=== PATIENT | female | born 1955 | race Caucasian/White ===

== ENCOUNTER 2021-01-19 11:02 | Inpatient (IN) ==
[2021-01-19] MEDS ORDERED: D5% in Water 1,000 ML IVC PRN (14:28)
[2021-01-19] MEDS ORDERED: *HR* Dextrose 50 % in Water (Vial) 50 ML VIAL IVP PRN (14:28)
[2021-01-19] MEDS ORDERED: Dextrose Gel 15 GM/37.5 ML TUBE PO PRN ×2 (14:28)
[2021-01-19] MEDS ORDERED: Heparin 25,000UNIT/250ML 1/2NS 25,000 UNIT/250 ML IV.SOLN IVC SCH (14:30)
[2021-01-19] MEDS ORDERED: *HR* Heparin 5,000 UNIT/ML VIAL IVP PRN ×2 (14:53)
[2021-01-19] MEDS ORDERED: Naloxone 0.4 MG/ML INJ IVP PRN (14:54)
[2021-01-19] MEDS ORDERED: Perflutren Lipid Microsphere 1.3 ML in 0.9 % Sodium Chloride 8.7 ML IVP PRN (15:16)
[2021-01-19 15:53] LABS: Hematocrit 34.3 % (35.3-44.9); Hemoglobin 10.8 g/dL (11.5-15.4); Mean Corpuscular HGB Conc 31.5 g/dL (31.6-35.5); Mean Corpuscular Hemoglobin 23.4 pg (28.0-33.3); Mean Corpuscular Volume 74.2 fL (83.0-100.0); Mean Platelet Volume 8.9 fL (9.4-12.4); Platelet Count 403 K/mcL (140-400); Red Blood Count 4.62 M/mcL (3.82-4.97); Red Cell Distribution Width 14.7 % (11.5-14.5); White Blood Count 11.6 K/mcL (4.3-11.1)
[2021-01-19] MEDS: Heparin 25,000UNIT/250ML 1/2NS 25,000 UNIT/250 ML IV.SOLN IVC SCH (16:01)
[2021-01-19 16:02] LABS: Heparin anti-factor XA UFH 0.57 IU/mL (0.30-0.70); INR 1.4; Prothrombin Time 15.6 Seconds (9.4-12.1)
[2021-01-19] MEDS: Insulin LISPRO 300 UNITS/3 ML VIAL SUBQ SCH (16:03)
[2021-01-19] MEDS: carvediloL 6.25 MG TABLET PO SCH (16:32)
[2021-01-19] MEDS: traZODone 50 MG TABLET PO SCH (21:05)
[2021-01-19] MEDS: Gabapentin 300 MG CAPSULE PO SCH (21:05)
[2021-01-20 04:58] LABS: Basophils # 0.1 K/mcL (0.0-0.2); Eosinophils # 0.1 K/mcL (0.0-0.6); Eosinophils % 1.1 %; Hematocrit 31.2 % (35.3-44.9); Hemoglobin 9.6 g/dL (11.5-15.4); Immature Granulocytes % 0.4 % (0-4); Lymphocytes # 2.4 K/mcL (0.6-4.6); Lymphocytes % 24.7 %; Mean Corpuscular HGB Conc 30.8 g/dL (31.6-35.5); Mean Corpuscular Hemoglobin 22.4 pg (28.0-33.3); Mean Corpuscular Volume 72.9 fL (83.0-100.0); Mean Platelet Volume 8.6 fL (9.4-12.4); Monocytes # 0.9 K/mcL (0.0-1.3); Monocytes % 8.9 %; Neutrophils # 6.2 K/mcL (1.6-8.9); Platelet Count 375 K/mcL (140-400); Red Blood Count 4.28 M/mcL (3.82-4.97); Red Cell Distribution Width 14.7 % (11.5-14.5); Segmented Neutrophils % 63.9 %; White Blood Count 9.7 K/mcL (4.3-11.1)
[2021-01-20 05:18] LABS: Calcium 9.4 mg/dL (8.6-10.3); Potassium 3.5 mEq/L (3.5-5.1)
[2021-01-20] MEDS: Insulin LISPRO 300 UNITS/3 ML VIAL SUBQ SCH ×3 (07:18→15:11)
[2021-01-20] MEDS: Cyanocobalamin (B-12) 1,000 MCG TABLET PO SCH (08:08)
[2021-01-20] MEDS: Gabapentin 300 MG CAPSULE PO SCH ×3 (08:08→19:49)
[2021-01-20] MEDS: Fenofibrate 54 MG TABLET PO SCH (08:08)
[2021-01-20] MEDS: carvediloL 6.25 MG TABLET PO SCH ×2 (08:09→15:01)
[2021-01-20] MEDS: cefTRIAXone 1,000 MG in Water for inj. (sterile) 10 ML IVP SCH (09:06)
[2021-01-20] MEDS: Aspirin Enteric Coated 81 MG Tablet PO SCH (12:03)
[2021-01-20 14:33] LABS: Hematocrit 31.2 % (35.3-44.9); Hemoglobin 9.5 g/dL (11.5-15.4)
[2021-01-20] MEDS: traZODone 50 MG TABLET PO SCH (19:49)
[2021-01-20 20:18] LABS: Hematocrit 31.3 % (35.3-44.9); Hemoglobin 9.8 g/dL (11.5-15.4)
[2021-01-21 02:50] LABS: Basophils # 0.1 K/mcL (0.0-0.2); Basophils % 1.2 %; Eosinophils # 0.3 K/mcL (0.0-0.6); Eosinophils % 2.8 %; Hemoglobin 9.3 g/dL (11.5-15.4); Immature Granulocytes % 0.2 % (0-4); Lymphocytes # 2.8 K/mcL (0.6-4.6); Lymphocytes % 31.4 %; Mean Corpuscular Hemoglobin 22.3 pg (28.0-33.3); Mean Corpuscular Volume 74.3 fL (83.0-100.0); Monocytes # 0.8 K/mcL (0.0-1.3); Monocytes % 8.5 %; Platelet Count 306 K/mcL (140-400); Red Blood Count 4.17 M/mcL (3.82-4.97); Red Cell Distribution Width 14.8 % (11.5-14.5); Segmented Neutrophils % 55.9 %
[2021-01-21 02:59] LABS: Calcium 9.4 mg/dL (8.6-10.3); Potassium 3.8 mEq/L (3.5-5.1)
[2021-01-21] MEDS: Heparin 25,000UNIT/250ML 1/2NS 25,000 UNIT/250 ML IV.SOLN IVC SCH ×2 (03:48→15:57)
[2021-01-21] MEDS ORDERED: *HR* Metoprolol 5 MG/5 ML VIAL IVP ONE (06:25)
[2021-01-21] MEDS: Insulin LISPRO 300 UNITS/3 ML VIAL SUBQ SCH ×3 (08:03→16:57)
[2021-01-21] MEDS: Gabapentin 300 MG CAPSULE PO SCH ×3 (08:13→21:28)
[2021-01-21] MEDS: Fenofibrate 54 MG TABLET PO SCH (08:14)
[2021-01-21] MEDS: Cyanocobalamin (B-12) 1,000 MCG TABLET PO SCH (08:14)
[2021-01-21] MEDS: Aspirin Enteric Coated 81 MG Tablet PO SCH (08:15)
[2021-01-21] MEDS: carvediloL 6.25 MG TABLET PO SCH ×2 (08:15→16:03)
[2021-01-21] MEDS: cefTRIAXone 1,000 MG in Water for inj. (sterile) 10 ML IVP SCH (09:46)
[2021-01-21] MEDS: traZODone 50 MG TABLET PO SCH (21:29)
[2021-01-21] MEDS: Apixaban 5 MG TABLET PO SCH (21:32)
[2021-01-22 07:28] LABS: Basophils # 0.1 K/mcL (0.0-0.2); Eosinophils # 0.3 K/mcL (0.0-0.6); Eosinophils % 3.9 %; Hematocrit 32.4 % (35.3-44.9); Hemoglobin 9.5 g/dL (11.5-15.4); Immature Granulocytes % 0.1 % (0-4); Lymphocytes # 1.8 K/mcL (0.6-4.6); Mean Corpuscular HGB Conc 29.3 g/dL (31.6-35.5); Mean Corpuscular Hemoglobin 22.7 pg (28.0-33.3); Mean Corpuscular Volume 77.3 fL (83.0-100.0); Mean Platelet Volume 9.6 fL (9.4-12.4); Monocytes # 0.5 K/mcL (0.0-1.3); Monocytes % 7.7 %; Neutrophils # 4.3 K/mcL (1.6-8.9); Platelet Count 300 K/mcL (140-400); Red Blood Count 4.19 M/mcL (3.82-4.97); Red Cell Distribution Width 14.8 % (11.5-14.5); Segmented Neutrophils % 61.3 %
[2021-01-22 07:50] LABS: BUN/Creatinine Ratio 28 (6-26); Blood Urea Nitrogen 31 mg/dL (8-23); Calcium 9.4 mg/dL (8.6-10.3); Carbon Dioxide 26 mEq/L (23-29); Chloride 105 mEq/L (98-107); Glucose 81 mg/dL (70-105); Osmolality,Calculated 300 (280-300); Potassium 3.8 mEq/L (3.5-5.1); Sodium 142 mEq/L (136-145); eGFR For African Americans > 60 (> 60); eGFR For Non-African Americans 51 (> 60)
[2021-01-22] MEDS: Insulin LISPRO 300 UNITS/3 ML VIAL SUBQ SCH ×3 (08:30→17:06)
[2021-01-22] MEDS: cefTRIAXone 1,000 MG in Water for inj. (sterile) 10 ML IVP SCH (09:21)
[2021-01-22] MEDS: Fenofibrate 54 MG TABLET PO SCH (09:24)
[2021-01-22] MEDS: Apixaban 5 MG TABLET PO SCH ×2 (09:25→20:40)
[2021-01-22] MEDS: carvediloL 6.25 MG TABLET PO SCH ×2 (09:26→15:53)
[2021-01-22] MEDS: Gabapentin 300 MG CAPSULE PO SCH ×3 (09:26→20:54)
[2021-01-22] MEDS: Cyanocobalamin (B-12) 1,000 MCG TABLET PO SCH (09:26)
[2021-01-22] MEDS: Aspirin Enteric Coated 81 MG Tablet PO SCH (09:27)
[2021-01-22] MEDS: QUEtiapine Fumarate 25 MG TABLET PO PRN (15:53)
[2021-01-22] MEDS: traZODone 50 MG TABLET PO SCH (20:54)
[2021-01-23] MEDS: Insulin LISPRO 300 UNITS/3 ML VIAL SUBQ SCH ×3 (09:23→17:02)
[2021-01-23] MEDS: QUEtiapine Fumarate 25 MG TABLET PO PRN ×2 (09:37→17:01)
[2021-01-23] MEDS: Gabapentin 300 MG CAPSULE PO SCH ×3 (09:37→21:09)
[2021-01-23] MEDS: Aspirin Enteric Coated 81 MG Tablet PO SCH (09:38)
[2021-01-23] MEDS: carvediloL 6.25 MG TABLET PO SCH ×2 (09:38→17:02)
[2021-01-23] MEDS: Cyanocobalamin (B-12) 1,000 MCG TABLET PO SCH (09:38)
[2021-01-23] MEDS: Apixaban 5 MG TABLET PO SCH ×2 (09:38→21:10)
[2021-01-23] MEDS: Fenofibrate 54 MG TABLET PO SCH (09:38)
[2021-01-23] MEDS: cefTRIAXone 1,000 MG in Water for inj. (sterile) 10 ML IVP SCH (09:39)
[2021-01-23] MEDS: traZODone 50 MG TABLET PO SCH (21:09)
[2021-01-24] MEDS: QUEtiapine Fumarate 25 MG TABLET PO PRN ×2 (03:33→13:11)
[2021-01-24] MEDS: Insulin LISPRO 300 UNITS/3 ML VIAL SUBQ SCH ×3 (07:30→16:33)
[2021-01-24] MEDS: carvediloL 6.25 MG TABLET PO SCH ×2 (10:00→17:54)
[2021-01-24] MEDS: Apixaban 5 MG TABLET PO SCH ×2 (10:01→20:26)
[2021-01-24] MEDS: Aspirin Enteric Coated 81 MG Tablet PO SCH (10:01)
[2021-01-24] MEDS: Fenofibrate 54 MG TABLET PO SCH (10:02)
[2021-01-24] MEDS: Gabapentin 300 MG CAPSULE PO SCH ×3 (10:02→20:26)
[2021-01-24] MEDS: Cyanocobalamin (B-12) 1,000 MCG TABLET PO SCH (10:02)
[2021-01-24] MEDS: traZODone 50 MG TABLET PO SCH (20:26)
[2021-01-24] MEDS: QUEtiapine Fumarate 25 MG TABLET PO SCH (20:26)
[2021-01-25] MEDS: Insulin LISPRO 300 UNITS/3 ML VIAL SUBQ SCH ×3 (07:46→17:12)
[2021-01-25] MEDS: carvediloL 6.25 MG TABLET PO SCH ×2 (08:05→17:12)
[2021-01-25] MEDS: Fenofibrate 54 MG TABLET PO SCH (08:05)
[2021-01-25] MEDS: Aspirin Enteric Coated 81 MG Tablet PO SCH (08:05)
[2021-01-25] MEDS: Apixaban 5 MG TABLET PO SCH ×2 (08:05→20:40)
[2021-01-25] MEDS: Cyanocobalamin (B-12) 1,000 MCG TABLET PO SCH (08:05)
[2021-01-25] MEDS: Gabapentin 300 MG CAPSULE PO SCH ×3 (08:05→20:40)
[2021-01-25] MEDS: Acetaminophen 325 MG TABLET PO PRN (18:27)
[2021-01-25] MEDS: traZODone 50 MG TABLET PO SCH (20:40)
[2021-01-25] MEDS: QUEtiapine Fumarate 25 MG TABLET PO SCH (20:40)
[2021-01-26 03:36] LABS: Hematocrit 31.7 % (35.3-44.9); Hemoglobin 9.3 g/dL (11.5-15.4); Mean Corpuscular HGB Conc 29.3 g/dL (31.6-35.5); Mean Corpuscular Hemoglobin 22.5 pg (28.0-33.3); Mean Corpuscular Volume 76.8 fL (83.0-100.0); Mean Platelet Volume 9.3 fL (9.4-12.4); Platelet Count 270 K/mcL (140-400); Red Blood Count 4.13 M/mcL (3.82-4.97); Red Cell Distribution Width 14.6 % (11.5-14.5); White Blood Count 8.1 K/mcL (4.3-11.1)
[2021-01-26] MEDS: Cyanocobalamin (B-12) 1,000 MCG TABLET PO SCH (09:34)
[2021-01-26] MEDS: Apixaban 5 MG TABLET PO SCH ×2 (09:34→19:57)
[2021-01-26] MEDS: Aspirin Enteric Coated 81 MG Tablet PO SCH (09:34)
[2021-01-26] MEDS: Gabapentin 300 MG CAPSULE PO SCH ×3 (09:34→19:58)
[2021-01-26] MEDS: carvediloL 6.25 MG TABLET PO SCH ×2 (09:34→17:32)
[2021-01-26] MEDS: Fenofibrate 54 MG TABLET PO SCH (09:34)
[2021-01-26] MEDS: Insulin LISPRO 300 UNITS/3 ML VIAL SUBQ SCH ×3 (09:38→17:32)
[2021-01-26] MEDS: QUEtiapine Fumarate 25 MG TABLET PO SCH (19:58)
[2021-01-26] MEDS: traZODone 50 MG TABLET PO SCH (19:59)
[2021-01-27] MEDS: carvediloL 6.25 MG TABLET PO SCH ×2 (07:28→17:40)
[2021-01-27] MEDS: Fenofibrate 54 MG TABLET PO SCH (07:28)
[2021-01-27] MEDS: Apixaban 5 MG TABLET PO SCH ×2 (07:28→20:17)
[2021-01-27] MEDS: Cyanocobalamin (B-12) 1,000 MCG TABLET PO SCH (07:28)
[2021-01-27] MEDS: Gabapentin 300 MG CAPSULE PO SCH ×3 (07:28→20:18)
[2021-01-27] MEDS: Aspirin Enteric Coated 81 MG Tablet PO SCH (07:28)
[2021-01-27] MEDS: Insulin LISPRO 300 UNITS/3 ML VIAL SUBQ SCH ×3 (08:07→17:40)
[2021-01-27] MEDS: QUEtiapine Fumarate 25 MG TABLET PO SCH (20:17)
[2021-01-27] MEDS: traZODone 50 MG TABLET PO SCH (20:18)
[2021-01-28] MEDS: carvediloL 6.25 MG TABLET PO SCH ×3 (08:21→17:44)
[2021-01-28] MEDS: Cyanocobalamin (B-12) 1,000 MCG TABLET PO SCH (08:21)
[2021-01-28] MEDS: Apixaban 5 MG TABLET PO SCH ×2 (08:21→20:53)
[2021-01-28] MEDS: Aspirin Enteric Coated 81 MG Tablet PO SCH (08:21)
[2021-01-28] MEDS: Fenofibrate 54 MG TABLET PO SCH (08:21)
[2021-01-28] MEDS: Gabapentin 300 MG CAPSULE PO SCH ×4 (08:21→20:53)
[2021-01-28] MEDS: Insulin LISPRO 300 UNITS/3 ML VIAL SUBQ SCH ×3 (08:27→17:37)
[2021-01-28] MEDS: traZODone 50 MG TABLET PO SCH (20:53)
[2021-01-28] MEDS: QUEtiapine Fumarate 25 MG TABLET PO SCH (20:53)
[2021-01-28] MEDS: Acetaminophen 325 MG TABLET PO PRN (21:29)
[2021-01-29] MEDS: Insulin LISPRO 300 UNITS/3 ML VIAL SUBQ SCH ×3 (09:56→18:38)
[2021-01-29] MEDS: carvediloL 6.25 MG TABLET PO SCH ×2 (09:57→18:38)
[2021-01-29] MEDS: Gabapentin 300 MG CAPSULE PO SCH ×3 (10:26→20:16)
[2021-01-29] MEDS: Cyanocobalamin (B-12) 1,000 MCG TABLET PO SCH (10:26)
[2021-01-29] MEDS: Fenofibrate 54 MG TABLET PO SCH (10:26)
[2021-01-29] MEDS: Apixaban 5 MG TABLET PO SCH ×2 (10:26→20:16)
[2021-01-29] MEDS: Aspirin Enteric Coated 81 MG Tablet PO SCH (10:26)
[2021-01-29] MEDS: traZODone 50 MG TABLET PO SCH (20:16)
[2021-01-29] MEDS: QUEtiapine Fumarate 25 MG TABLET PO SCH (20:16)
[2021-01-30] MEDS ORDERED: DilTIAZem CD (24hr) 120 MG CAP.ER.24H PO SCH (09:00)
[2021-01-30] MEDS: Insulin LISPRO 300 UNITS/3 ML VIAL SUBQ SCH ×3 (10:17→19:10)
[2021-01-30] MEDS: carvediloL 6.25 MG TABLET PO SCH ×2 (10:24→18:10)
[2021-01-30] MEDS: Apixaban 5 MG TABLET PO SCH ×2 (10:37→20:23)
[2021-01-30] MEDS: Cyanocobalamin (B-12) 1,000 MCG TABLET PO SCH (10:37)
[2021-01-30] MEDS: Aspirin Enteric Coated 81 MG Tablet PO SCH (10:37)
[2021-01-30] MEDS: Gabapentin 300 MG CAPSULE PO SCH ×3 (10:37→20:23)
[2021-01-30] MEDS: Fenofibrate 54 MG TABLET PO SCH (10:37)
[2021-01-30] MEDS: traZODone 50 MG TABLET PO SCH (20:23)
[2021-01-30] MEDS: QUEtiapine Fumarate 25 MG TABLET PO SCH (20:23)
[2021-01-31] MEDS: Insulin LISPRO 300 UNITS/3 ML VIAL SUBQ SCH ×3 (09:01→16:57)
[2021-01-31] MEDS: Apixaban 5 MG TABLET PO SCH ×2 (09:19→19:53)
[2021-01-31] MEDS: Fenofibrate 54 MG TABLET PO SCH (09:19)
[2021-01-31] MEDS: Gabapentin 300 MG CAPSULE PO SCH ×3 (09:20→19:53)
[2021-01-31] MEDS: carvediloL 6.25 MG TABLET PO SCH ×2 (09:21→16:53)
[2021-01-31] MEDS: Aspirin Enteric Coated 81 MG Tablet PO SCH (09:21)
[2021-01-31] MEDS: Cyanocobalamin (B-12) 1,000 MCG TABLET PO SCH (09:21)
[2021-01-31] MEDS: traZODone 50 MG TABLET PO SCH (19:52)
[2021-01-31] MEDS: QUEtiapine Fumarate 25 MG TABLET PO SCH (19:52)
[2021-02-01 06:25] VITALS: BP 111/60
[2021-02-01] MEDS: Insulin LISPRO 300 UNITS/3 ML VIAL SUBQ SCH (07:30)
[2021-02-01] MEDS: Fenofibrate 54 MG TABLET PO SCH (08:29)
[2021-02-01] MEDS: Apixaban 5 MG TABLET PO SCH (08:30)
[2021-02-01] MEDS: carvediloL 6.25 MG TABLET PO SCH (08:30)
[2021-02-01] MEDS: Cyanocobalamin (B-12) 1,000 MCG TABLET PO SCH (08:30)
[2021-02-01] MEDS: Gabapentin 300 MG CAPSULE PO SCH (08:30)
[2021-02-01] MEDS: Aspirin Enteric Coated 81 MG Tablet PO SCH (08:30)
== END 2021-02-01 10:15 | DRG 309 ==
LOC: 3BNU → SUATTDRO 14:12
PROVIDERS: ADMIT Internal Medicine; ATTEND Registered Nurse